=== PATIENT | male | born 1955 | race Caucasian/White ===

== ENCOUNTER → 2023-11-25 07:41 | Outpatient (REF) | payer MEDICARE, OTHER, SELFPAY ==
[2023-11-25 08:32] LABS: Protein/creatinine Ratio 0.5; Urine Protein 58 mg/dl
[2023-11-25 08:34] LABS: Albumin 4.6 g/dl (3.5-5.0); Blood Urea Nitrogen 32 mg/dl (9-20); Calcium 9.9 mg/dl (8.4-10.2); Carbon Dioxide 26 mmol/L (22-30); Chloride 102 mmol/L (98-107); Glucose 134 mg/dl (70-99); Phosphorus 4.2 mg/dl (2.5-4.5); Potassium 4.4 mmol/L (3.5-5.1); Sodium 139 mmol/L (135-145); eGFR > 60.00
[2023-11-25 09:04] LABS: Cortisol, Random 13.6 ug/dl
[2023-11-28 02:42] LABS: 24 Hour Urine Total Volume Random mL; Urine Collection Length Random hr; Urine Free Lambda Light Chains 10.88 mg/L (0.00-3.79)
== END ==
LOC: REG 07:41
PROVIDERS: ATTENDING PHYSICIAN Specialist; FAMILY PHYSICIAN Internal Medicine Geriatric Medicine
DX: R80.9 Proteinuria, unspecified (principal)
CPT/HCPCS: 36415; 80069; 82533; 82570; 83521; 84156; 86335

== ENCOUNTER → 2024-03-04 09:12 | Outpatient (REF) | payer MEDICARE, OTHER, SELFPAY ==
[2024-03-04 10:10] LABS: Urine Albumin Trace (Neg - Trace); Urine Bilirubin Negative (Negative); Urine Character Clear (Clear); Urine Color Yellow; Urine Glucose Negative (Negative); Urine Ketone Negative (Negative); Urine Leukocyte Negative (Negative); Urine Nitrite Negative (Negative); Urine Occult Blood Negative (Negative); Urine Specific Gravity 1.015 (<1.030); Urine Urobilinogen Negative (Neg - 1+)
[2024-03-04 10:49] LABS: ALT (SGPT) 16 U/L (0-50); AST (SGOT) 17 U/L (17-59); Albumin 4.6 g/dl (3.5-5.0); Alkaline Phosphatase 60 U/L (38-126); Blood Urea Nitrogen 36 mg/dl (9-20); Calcium 9.8 mg/dl (8.4-10.2); Carbon Dioxide 29 mmol/L (22-30); Chloride 98 mmol/L (98-107); Glucose 112 mg/dl (70-99); Potassium 4.5 mmol/L (3.5-5.1); Sodium 137 mmol/L (135-145); Total Bilirubin 0.5 mg/dl (0.2-1.3); Total Cholesterol 194 mg/dl (50-199); Total Protein 7.6 g/dl (6.3-8.2); Triglyceride 165 mg/dl (10-149); Uric Acid 10.5 mg/dl (3.5-8.5); Very Low Density Lipoprotein 33 mg/dl (0-30); eGFR 54.41
[2024-03-04 11:00] LABS: Vitamin D, 25-OH*** 50.6 ng/mL (30-80)
[2024-03-04 11:02] LABS: HDL Cholesterol 47 mg/dl; LDL Cholesterol, Calculated 114 mg/dl
[2024-03-04 11:13] LABS: PSA, Total - Screen 1.05 ng/ml (0.0-4.0)
== END ==
LOC: REG 09:12
PROVIDERS: ATTENDING PHYSICIAN Internal Medicine Geriatric Medicine
DX: Z00.00 Encounter for general adult medical examination without abnormal findings (principal); M17.12 Unilateral primary osteoarthritis, left knee; M79.641 Pain in right hand; I10 Essential (primary) hypertension; E78.2 Mixed hyperlipidemia; R73.01 Impaired fasting glucose; I42.1 Obstructive hypertrophic cardiomyopathy; E55.9 Vitamin D deficiency, unspecified; J40 Bronchitis, not specified as acute or chronic; Z13.31 Encounter for screening for depression; Z12.5 Encounter for screening for malignant neoplasm of prostate
CPT/HCPCS: 36415; 80053; 80061; 81003; 82306; 84550; G0103

== ENCOUNTER 2024-03-04 09:43 | Outpatient (RCR) | payer MEDICARE, OTHER, SELFPAY | END 2024-03-04 23:59 | disposition home or self-care (01) | LOC: ROT 09:43 | PROVIDERS: ATTENDING PHYSICIAN Orthopaedic Surgery Hand Surgery; FAMILY PHYSICIAN Internal Medicine Geriatric Medicine | DX: M10.9 Gout, unspecified (principal); Z73.6 Limitation of activities due to disability | CPT/HCPCS: 97018; 97110; 97140; 97166; 97535 ==

== ENCOUNTER 2024-03-08 08:08 | Outpatient (RCR) | payer MEDICARE, OTHER, SELFPAY | END 2024-03-08 23:59 | disposition home or self-care (01) | LOC: ROT 08:08 | PROVIDERS: ATTENDING PHYSICIAN Orthopaedic Surgery Hand Surgery; FAMILY PHYSICIAN Internal Medicine Geriatric Medicine | DX: M10.9 Gout, unspecified (principal); Z73.6 Limitation of activities due to disability | CPT/HCPCS: 97018; 97110; 97140 ==

== ENCOUNTER → 2024-04-10 11:03 | Outpatient (REF) | payer MEDICARE, OTHER, SELFPAY | LOC: RCS 11:03 | PROVIDERS: ATTENDING PHYSICIAN Internal Medicine Geriatric Medicine | DX: Z00.00 Encounter for general adult medical examination without abnormal findings (principal); M17.12 Unilateral primary osteoarthritis, left knee; M79.641 Pain in right hand; I10 Essential (primary) hypertension; E78.2 Mixed hyperlipidemia; R73.01 Impaired fasting glucose; I42.1 Obstructive hypertrophic cardiomyopathy; E55.9 Vitamin D deficiency, unspecified; J40 Bronchitis, not specified as acute or chronic; Z13.31 Encounter for screening for depression | CPT/HCPCS: 93306 ==